=== PATIENT | male | born 1955 | race Caucasian/White ===

== ENCOUNTER 2017-07-31 09:07 | Day surgery (SDC) | payer OTHER ==
[2017-07-31] MEDS ORDERED: MIDAZOLAM 1 MG/ML 2 ML INJ ×3 (11:36)
[2017-07-31] MEDS ORDERED: FENTAnyl 50 MCG/ML VIAL (11:36)
== END 2017-07-31 12:22 | disposition home or self-care (01) ==
LOC: GIL 09:07
DX: K21.0 Gastro-esophageal reflux disease with esophagitis (principal); K29.70 Gastritis, unspecified, without bleeding
CPT/HCPCS: 43239; 88305; 88312; 88313

== ENCOUNTER 2018-07-12 04:49 | Inpatient (IN) | payer OTHER ==
[2018-07-12] MEDS: ACETAMINOPHEN 325 MG TAB PO ×2 (05:27→20:02)
[2018-07-12] MEDS ORDERED: ONDANSETRON 4 MG INJ IV (05:30)
[2018-07-12] MEDS ORDERED: NACL 0.9% 3 ML SYG IV (06:00)
[2018-07-12 07:04] LABS: CREATINE KINASE 52 IU/L (23-200)
[2018-07-12 07:16] LABS: CK INDEX 0.5; CK-MB 0.24 ng/ml (0.0-2.4); TROPONIN-I < 0.012 ng/ml (0.000-0.120)
[2018-07-12 07:49] LABS: INR 1.25; PROTIME 15.8 Sec (11.9-14.9); PT RATIO 1.2
[2018-07-12] MEDS: morphine 2 MG INJ IV ×4 (08:18→22:08)
[2018-07-12] MEDS ORDERED: NON-FORMULARY/PATIENT OWN MED (Omeprazole* 40 MG) PO (09:00)
[2018-07-12] MEDS ORDERED: ENOXAPARIN 40 MG/0.4 ML SYG SC (09:00)
[2018-07-12] MEDS: LISINOPRIL 5 MG TAB PO (09:00)
[2018-07-12] MEDS: PANTOPRAZOLE (EC) 40 MG TAB PO (09:13)
[2018-07-12] MEDS ORDERED: LORAZEPAM 2 MG INJ (11:07)
[2018-07-12] MEDS: LORAZEPAM 2 MG INJ IV (11:14)
[2018-07-12 13:57] LABS: ANION GAP 11 (5-13); BLOOD UREA NITROGEN 31 mg/dl (7-20); CALCIUM 9.2 mg/dl (8.4-10.2); CARBON DIOXIDE 26 mmol/L (21-31); CHLORIDE 102 mmol/L (97-110); CREATINE KINASE 49 IU/L (23-200); CREATININE 1.47 mg/dl (0.61-1.24); Estimated GFR 49 mL/min (>60); GLUCOSE 99 mg/dl (70-220); POTASSIUM 4.2 mmol/L (3.5-5.1); SODIUM 139 mmol/L (135-144)
[2018-07-12 14:10] LABS: CK INDEX 0.6; TROPONIN-I < 0.012 ng/ml (0.000-0.120)
[2018-07-12] MEDS: CEFTRIAXONE 1 GM/50 ML (PMX) 50 ML IVPB (15:56)
[2018-07-12] MEDS: AZITHROMYCIN 500MG/NS (PMX) 250 ML IVPB (17:13)
[2018-07-12] MEDS: LORAZEPAM 1 MG TAB PO (21:12)
[2018-07-13] MEDS: morphine 2 MG INJ IV ×6 (02:35→22:04)
[2018-07-13 05:18] LABS: ADD MAN DIFF? NO
[2018-07-13 05:19] LABS: BASOPHIL # 0.1 10^3/ul (0.0-0.1); BASOPHILS % 0.3 % (0.0-2.0); EOSINOPHILS # 0.2 10^3/ul (0.0-0.5); HEMATOCRIT 33.7 % (42.0-52.0); LYMPHOCYTES # 1.2 10^3/ul (0.8-2.9); LYMPHOCYTES % 6.8 % (15.0-51.0); MEAN CORPUSCULAR HEMOGLOBIN 28.6 pg (29.0-33.0); MEAN CORPUSCULAR HGB CONC 32.6 g/dl (32.0-37.0); MEAN CORPUSCULAR VOLUME 87.8 fl (82.0-101.0); MEAN PLATELET VOLUME 10.2 fl (7.4-10.4); MONOCYTE # 1.3 10^3/ul (0.3-0.9); MONOCYTES % 7.6 % (0.0-11.0); NEUTROPHIL # 14.4 10^3/ul (1.6-7.5); NEUTROPHILS % 83.3 % (39.0-77.0); PLATELET COUNT 378 10^3/UL (140-415); RED BLOOD COUNT 3.84 10^6/ul (4.70-6.10); RED CELL DISTRIBUTION WIDTH 14.7 % (11.5-14.5)
[2018-07-13 05:19] LABS: WHITE BLOOD COUNT 17.3 10^3/ul (4.8-10.8)
[2018-07-13 05:42] LABS: HEMOGLOBIN A1C 5.5 % (0-5.9)
[2018-07-13 05:45] LABS: ALANINE AMINOTRANSFERASE 20 IU/L (13-69); ALBUMIN 3.2 g/dl (3.3-4.9); ALBUMIN/GLOBULIN RATIO 0.88; ALKALINE PHOSPHATASE 202 IU/L (42-121); ANION GAP 10 (5-13); ASPARTATE AMINO TRANSFERASE 24 IU/L (15-46); BILIRUBIN,INDIRECT 0.4 mg/dl (0-1.1); BILIRUBIN,TOTAL 0.4 mg/dl (0.2-1.3); BLOOD UREA NITROGEN 25 mg/dl (7-20); CALCIUM 9.3 mg/dl (8.4-10.2); CARBON DIOXIDE 27 mmol/L (21-31); CHLORIDE 103 mmol/L (97-110); CHOLESTEROL 79 mg/dl (100-200); CREATININE 1.13 mg/dl (0.61-1.24); Estimated GFR > 60 mL/min (>60); GLUCOSE 108 mg/dl (70-220); HDL CHOLESTEROL 13 mg/dl (30-78); LDL CHOLESTEROL,CALCULATED 47 mg/dl; MAGNESIUM 1.9 mg/dl (1.7-2.5); POTASSIUM 4.6 mmol/L (3.5-5.1); SODIUM 140 mmol/L (135-144); TOTAL PROTEIN 6.8 g/dl (6.1-8.1); TRIGLYCERIDES 95 mg/dl (0-149)
[2018-07-13] MEDS: LORAZEPAM 1 MG TAB PO ×3 (06:27→19:50)
[2018-07-13] MEDS: PANTOPRAZOLE (EC) 40 MG TAB PO (06:27)
[2018-07-13] MEDS: LEVOTHYROXINE 50 MCG TAB PO ×2 (07:00→09:15)
[2018-07-13] MEDS: LISINOPRIL 20 MG TAB PO (09:14)
[2018-07-13] MEDS: AMLODIPINE 5 MG TAB PO (09:14)
[2018-07-13] MEDS: CEFEPIME 2GM/50 ML (PMX) 50 ML IVPB (11:01)
[2018-07-13] MEDS: SOD CHLORIDE 0.9% 1,000 ML IV ×3 (11:02→22:24)
[2018-07-13] MEDS: AZITHROMYCIN 500MG/NS (PMX) 250 ML IVPB (15:59)
[2018-07-13] MEDS: ACETAMINOPHEN 325 MG TAB PO (19:50)
[2018-07-13] MEDS: DOXYCYCLINE 100 MG in SOD CHLORIDE 0.9% 250 ML IVPB (20:53)
[2018-07-13] MEDS: MEROPENEM 1 GM/50ML(PMX) 50 ML IVPB (22:09)
[2018-07-14] MEDS: ALBUTEROL/IPRATROPIUM (NEB) 3 ML AMP HHN ×3 (00:22→11:51)
[2018-07-14] MEDS: morphine 2 MG INJ IV ×9 (01:06→21:59)
[2018-07-14] MEDS: MEROPENEM 1 GM/50ML(PMX) 50 ML IVPB ×3 (05:03→22:02)
[2018-07-14] MEDS: PANTOPRAZOLE (EC) 40 MG TAB PO (05:03)
[2018-07-14 05:23] LABS: ADD MAN DIFF? NO
[2018-07-14 05:30] LABS: BASOPHILS % 0.2 % (0.0-2.0); EOSINOPHILS # 0.2 10^3/ul (0.0-0.5); HEMATOCRIT 28.7 % (42.0-52.0); HEMOGLOBIN 9.7 g/dl (14.0-18.0); LYMPHOCYTES # 1.1 10^3/ul (0.8-2.9); LYMPHOCYTES % 6.1 % (15.0-51.0); MEAN CORPUSCULAR HEMOGLOBIN 28.7 pg (29.0-33.0); MEAN CORPUSCULAR HGB CONC 33.8 g/dl (32.0-37.0); MEAN CORPUSCULAR VOLUME 84.9 fl (82.0-101.0); MEAN PLATELET VOLUME 9.9 fl (7.4-10.4); MONOCYTE # 1.1 10^3/ul (0.3-0.9); MONOCYTES % 6.6 % (0.0-11.0); NEUTROPHIL # 14.6 10^3/ul (1.6-7.5); NEUTROPHILS % 85.4 % (39.0-77.0); PLATELET COUNT 375 10^3/UL (140-415); RED BLOOD COUNT 3.38 10^6/ul (4.70-6.10); RED CELL DISTRIBUTION WIDTH 14.6 % (11.5-14.5)
[2018-07-14 05:30] LABS: WHITE BLOOD COUNT 17.1 10^3/ul (4.8-10.8)
[2018-07-14 06:39] LABS: HIV 1&2 ANTIBODY NEGATIVE (NEGATIVE)
[2018-07-14] MEDS: SOD CHLORIDE 0.9% 1,000 ML IV ×2 (06:59→17:00)
[2018-07-14] MEDS: LEVOTHYROXINE 50 MCG TAB PO (06:59)
[2018-07-14] MEDS ORDERED: DESFLURANE 15 MIN (07:00)
[2018-07-14] MEDS ORDERED: SUCCINYLCHOLINE CHLORIDE 100 MG/5 ML SYG IV (07:00)
[2018-07-14] MEDS ORDERED: SUGAMMADEX SODIUM 200 MG/2 ML VIAL IV (07:00)
[2018-07-14 07:15] LABS: ANION GAP 8 (5-13); BLOOD UREA NITROGEN 15 mg/dl (7-20); CALCIUM 8.6 mg/dl (8.4-10.2); CARBON DIOXIDE 23 mmol/L (21-31); CHLORIDE 107 mmol/L (97-110); CREATININE 0.86 mg/dl (0.61-1.24); Estimated GFR > 60 mL/min (>60); GLUCOSE 111 mg/dl (70-220); MAGNESIUM 1.7 mg/dl (1.7-2.5); POTASSIUM 4.2 mmol/L (3.5-5.1); SODIUM 138 mmol/L (135-144)
[2018-07-14] MEDS: DOXYCYCLINE 100 MG in SOD CHLORIDE 0.9% 250 ML IVPB ×2 (08:42→22:02)
[2018-07-14] MEDS: LISINOPRIL 20 MG TAB PO (08:43)
[2018-07-14] MEDS: AMLODIPINE 5 MG TAB PO (08:44)
[2018-07-14] MEDS: ONDANSETRON 4 MG INJ IV (12:35)
[2018-07-14] MEDS ORDERED: LORAZEPAM 1 MG TAB PO (13:00)
[2018-07-14] MEDS: KETOROLAC 30 MG INJ IV (13:12)
[2018-07-14] MEDS ORDERED: FENTAnyl 50 MCG/ML VIAL IV (14:00)
[2018-07-14] MEDS ORDERED: ONDANSETRON 4 MG INJ IV (14:00)
[2018-07-14] MEDS ORDERED: LOPERAMIDE 2 MG CAP PO (15:00)
[2018-07-14] MEDS ORDERED: PROMETHAZINE/CODEINE 5ML CUP PO (15:00)
[2018-07-14] MEDS ORDERED: PROPOFOL 20 ML (16:26)
[2018-07-14] MEDS ORDERED: ROCURONIUM 50 MG INJ ×2 (16:26→18:04)
[2018-07-14] MEDS ORDERED: MIDAZOLAM 1 MG/ML 2 ML INJ (16:27)
[2018-07-14] MEDS ORDERED: METOCLOPRAMIDE 10 MG INJ (16:38)
[2018-07-14] MEDS ORDERED: ONDANSETRON 4 MG INJ (16:38)
[2018-07-14] MEDS ORDERED: FENTAnyl 50 MCG/ML VIAL (16:39)
[2018-07-14] MEDS ORDERED: EPHEDrine 25 MG/5 ML SYG (17:23)
[2018-07-14] MEDS ORDERED: HYDROmorphONE 2 MG/ML SYG (17:28)
[2018-07-14] MEDS ORDERED: METOPROLOL 5 MG INJ (17:37)
[2018-07-14 18:28] LABS: AADO2 Arterial 605.1 mmHg (7.0-24.0); Arterial Base Excess -5.5 mmol/L (-3.0-3); Arterial Blood Gas Oxygen Sat 95.5 mmHG (95.0-98.0); Arterial COHb 0.3 % (0.0-3.0); Arterial HCO3 17.4 mmol/L (22.0-26.0); Arterial MetHb 0.2 % (0.0-1.5); Arterial pCO2 25.8 mmhg (35-45); MODE VENT - PC; Site A-Line
[2018-07-14] MEDS ORDERED: KETOROLAC 30 MG INJ (18:51)
[2018-07-14] MEDS ORDERED: DIPHENHYDRAMINE 50 MG INJ IV (19:00)
[2018-07-14] MEDS: ACETAMINOPHEN 1000MG/100ML IV 100 ML IVPB (19:00)
[2018-07-14] MEDS ORDERED: HYDROmorphONE 0.5 MG/0.5 ML SYG IV (19:00)
[2018-07-14 19:25] LABS: ABNORMAL IP MESSAGE 1; HEMATOCRIT 29.2 % (42.0-52.0); MEAN CORPUSCULAR HEMOGLOBIN 29.2 pg (29.0-33.0); MEAN CORPUSCULAR HGB CONC 34.2 g/dl (32.0-37.0); MEAN CORPUSCULAR VOLUME 85.1 fl (82.0-101.0); MEAN PLATELET VOLUME 9.6 fl (7.4-10.4); PLATELET COUNT 529 10^3/UL (140-415); POSITIVE DIFF @See below; RED BLOOD COUNT 3.43 10^6/ul (4.70-6.10); RED CELL DISTRIBUTION WIDTH 14.6 % (11.5-14.5)
[2018-07-14 19:25] LABS: WHITE BLOOD COUNT 26.8 10^3/ul (4.8-10.8)
[2018-07-14 19:27] LABS: ADD MAN DIFF? YES
[2018-07-14] MEDS: BUPIVACAINE 0.5%/EPI (SDV) 10 ML INJ (19:41)
[2018-07-14] MEDS: D5W-0.45 NACL + KCL 20 MEQ 1,000 ML IV (19:59)
[2018-07-14] MEDS: MAGNESIUM SULFATE 2 GM/50 ML 50 ML IVPB (20:04)
[2018-07-14] MEDS: SOD CHLORIDE 0.9% 500 ML IV (20:56)
[2018-07-14] MEDS ORDERED: NORepinephrine 8MG/250 ML (PMX 250 ML IV (21:00)
[2018-07-14] MEDS: FAMOTIDINE 20 MG TAB PO (22:02)
[2018-07-14 23:02] LABS: BAND NEUTROPHILS % (M) 4 % (0-4); BASOPHIL #M 0.2 10^3/ul (0.0-0.0); BASOPHILS % (M) 1 % (0-2); BURR CELLS 1+ (0-0); GIANT THROMBO% (M) 1 % (0-0); LYMPHOCYTES % (M) 4 % (15-51); MONOCYTE #M 0.8 10^3/ul (0.3-0.9); MONOCYTES % (M) 3 % (0-11); OVALOCYTES 1+ (0-0); PLATELET ESTIMATE NORMAL; POIKILOCYTOSIS 1+ (0-0); SEG NEUT #M 23.9 10^3/ul (1.6-7.5); SEGMENTED NEUTROPHILS (M) % 88 % (39-77); SMUDGE%M 1 % (0-0)
[2018-07-15] MEDS: morphine 2 MG INJ IV ×8 (00:42→12:55)
[2018-07-15] MEDS: ACETAMINOPHEN 1000MG/100ML IV 100 ML IVPB ×3 (00:42→12:26)
[2018-07-15] MEDS: ONDANSETRON 4 MG INJ IV ×2 (01:21→08:47)
[2018-07-15] MEDS: LORAZEPAM 1 MG TAB PO ×2 (03:47→22:33)
[2018-07-15] MEDS: KETOROLAC 30 MG INJ IV (04:30)
[2018-07-15 06:01] LABS: ADD MAN DIFF? NO
[2018-07-15 06:05] LABS: WHITE BLOOD COUNT 16.4 10^3/ul (4.8-10.8)
[2018-07-15 06:05] LABS: BASOPHIL # 0.1 10^3/ul (0.0-0.1); BASOPHILS % 0.3 % (0.0-2.0); EOSINOPHILS % 0.2 % (0.0-7.0); HEMATOCRIT 21.7 % (42.0-52.0); HEMOGLOBIN 7.4 g/dl (14.0-18.0); LYMPHOCYTES # 1.2 10^3/ul (0.8-2.9); LYMPHOCYTES % 7.3 % (15.0-51.0); MEAN CORPUSCULAR HEMOGLOBIN 29.4 pg (29.0-33.0); MEAN CORPUSCULAR HGB CONC 34.1 g/dl (32.0-37.0); MEAN CORPUSCULAR VOLUME 86.1 fl (82.0-101.0); MEAN PLATELET VOLUME 9.9 fl (7.4-10.4); MONOCYTES % 6.3 % (0.0-11.0); NEUTROPHIL # 13.8 10^3/ul (1.6-7.5); NEUTROPHILS % 84.5 % (39.0-77.0); PLATELET COUNT 371 10^3/UL (140-415); RED BLOOD COUNT 2.52 10^6/ul (4.70-6.10); RED CELL DISTRIBUTION WIDTH 14.6 % (11.5-14.5)
[2018-07-15] MEDS: D5W-0.45 NACL + KCL 20 MEQ 1,000 ML IV (06:29)
[2018-07-15] MEDS: MEROPENEM 1 GM/50ML(PMX) 50 ML IVPB ×3 (06:29→22:37)
[2018-07-15] MEDS: PANTOPRAZOLE (EC) 40 MG TAB PO (06:30)
[2018-07-15] MEDS: LEVOTHYROXINE 50 MCG TAB PO (06:30)
[2018-07-15 06:32] LABS: ANION GAP 6 (5-13); BLOOD UREA NITROGEN 18 mg/dl (7-20); CALCIUM 8.2 mg/dl (8.4-10.2); CARBON DIOXIDE 20 mmol/L (21-31); CHLORIDE 110 mmol/L (97-110); CREATININE 1.03 mg/dl (0.61-1.24); Estimated GFR > 60 mL/min (>60); GLUCOSE 138 mg/dl (70-220); POTASSIUM 4.9 mmol/L (3.5-5.1); SODIUM 136 mmol/L (135-144)
[2018-07-15] MEDS: ENOXAPARIN 40 MG/0.4 ML SYG SC (06:33)
[2018-07-15 06:46] LABS: MAGNESIUM 2.1 mg/dl (1.7-2.5)
[2018-07-15] MEDS: HYDROmorphONE 0.5 MG/0.5 ML SYG IV ×2 (06:56→13:47)
[2018-07-15] MEDS: AMLODIPINE 5 MG TAB PO (08:56)
[2018-07-15] MEDS: FAMOTIDINE 20 MG TAB PO ×2 (08:56→21:16)
[2018-07-15] MEDS: HYDROCODONE/APAP (10/325) TAB PO ×4 (08:56→22:33)
[2018-07-15] MEDS: LISINOPRIL 20 MG TAB PO (08:56)
[2018-07-15] MEDS: DOXYCYCLINE 100 MG in SOD CHLORIDE 0.9% 250 ML IVPB ×2 (09:50→21:16)
[2018-07-15] MEDS: DEXTROSE 5%-0.45% NACL 1,000 ML IV ×2 (10:57→22:43)
[2018-07-15 14:03] LABS: HEMATOCRIT 22.7 % (42.0-52.0); HEMOGLOBIN 7.5 g/dl (14.0-18.0)
[2018-07-15] MEDS: HYDROmorphONE 0.2 MG/ML PCA IV (15:24)
[2018-07-16] MEDS: HYDROCODONE/APAP (10/325) TAB PO ×4 (04:17→20:18)
[2018-07-16 05:18] LABS: ADD MAN DIFF? NO
[2018-07-16 05:26] LABS: WHITE BLOOD COUNT 13.9 10^3/ul (4.8-10.8)
[2018-07-16 05:26] LABS: BASOPHILS % 0.3 % (0.0-2.0); EOSINOPHILS # 0.5 10^3/ul (0.0-0.5); EOSINOPHILS % 3.2 % (0.0-7.0); HEMOGLOBIN 7.2 g/dl (14.0-18.0); LYMPHOCYTES # 1.4 10^3/ul (0.8-2.9); LYMPHOCYTES % 10.4 % (15.0-51.0); MEAN CORPUSCULAR HEMOGLOBIN 28.8 pg (29.0-33.0); MEAN CORPUSCULAR HGB CONC 32.7 g/dl (32.0-37.0); MONOCYTE # 0.9 10^3/ul (0.3-0.9); MONOCYTES % 6.6 % (0.0-11.0); NEUTROPHIL # 10.8 10^3/ul (1.6-7.5); NEUTROPHILS % 78.1 % (39.0-77.0); PLATELET COUNT 377 10^3/UL (140-415); RED CELL DISTRIBUTION WIDTH 14.6 % (11.5-14.5)
[2018-07-16] MEDS: MEROPENEM 1 GM/50ML(PMX) 50 ML IVPB ×3 (05:39→22:48)
[2018-07-16 05:42] LABS: ANION GAP 5 (5-13); BLOOD UREA NITROGEN 15 mg/dl (7-20); CALCIUM 8.1 mg/dl (8.4-10.2); CARBON DIOXIDE 22 mmol/L (21-31); CHLORIDE 106 mmol/L (97-110); CREATININE 0.73 mg/dl (0.61-1.24); Estimated GFR > 60 mL/min (>60); GLUCOSE 112 mg/dl (70-220); POTASSIUM 4.7 mmol/L (3.5-5.1); SODIUM 133 mmol/L (135-144)
[2018-07-16 05:48] LABS: IRON < 10 ug/dl (35-150)
[2018-07-16 05:52] LABS: MAGNESIUM 1.9 mg/dl (1.7-2.5)
[2018-07-16 06:03] LABS: TOTAL IRON BINDING CAPACITY 190 ug/dl (241-421)
[2018-07-16] MEDS: DEXTROSE 5%-0.45% NACL 1,000 ML IV ×2 (06:37→16:01)
[2018-07-16] MEDS: LEVOTHYROXINE 50 MCG TAB PO (06:45)
[2018-07-16] MEDS: ENOXAPARIN 40 MG/0.4 ML SYG SC (07:00)
[2018-07-16] MEDS: DOXYCYCLINE 100 MG in SOD CHLORIDE 0.9% 250 ML IVPB (08:13)
[2018-07-16] MEDS: FAMOTIDINE 20 MG TAB PO ×2 (08:14→20:18)
[2018-07-16] MEDS: LISINOPRIL 20 MG TAB PO (08:14)
[2018-07-16] MEDS: AMLODIPINE 5 MG TAB PO (08:14)
[2018-07-16] MEDS: HYDROmorphONE 0.2 MG/ML PCA IV ×2 (08:22→22:00)
[2018-07-16] MEDS: ONDANSETRON 4 MG INJ IV ×2 (14:21→22:49)
[2018-07-16] MEDS: LORAZEPAM 2 MG INJ IV (15:52)
[2018-07-16] MEDS ORDERED: BISACODYL 10 MG SUPP PR (18:00)
[2018-07-16] MEDS: METOCLOPRAMIDE 10 MG INJ IV (19:09)
[2018-07-16] MEDS: LORAZEPAM 1 MG TAB PO (19:41)
[2018-07-17] MEDS: DEXTROSE 5%-0.45% NACL 1,000 ML IV ×3 (00:44→22:26)
[2018-07-17] MEDS: traZODone 50 MG TAB PO (00:50)
[2018-07-17] MEDS: HYDROCODONE/APAP (10/325) TAB PO ×3 (02:20→19:04)
[2018-07-17] MEDS: METOCLOPRAMIDE 10 MG INJ IV ×3 (02:20→16:13)
[2018-07-17] MEDS: HYDROmorphONE 0.2 MG/ML PCA IV ×3 (06:01→19:40)
[2018-07-17] MEDS: LEVOTHYROXINE 50 MCG TAB PO (06:17)
[2018-07-17] MEDS: MEROPENEM 1 GM/50ML(PMX) 50 ML IVPB (06:17)
[2018-07-17] MEDS: ONDANSETRON 4 MG INJ IV ×3 (06:21→19:03)
[2018-07-17] MEDS: ENOXAPARIN 40 MG/0.4 ML SYG SC (06:28)
[2018-07-17] MEDS: FAMOTIDINE 20 MG TAB PO ×2 (08:39→20:16)
[2018-07-17] MEDS: AMLODIPINE 5 MG TAB PO (08:39)
[2018-07-17] MEDS: LISINOPRIL 20 MG TAB PO (08:40)
[2018-07-17] MEDS: CEFTRIAXONE 1 GM/50 ML (PMX) 50 ML IVPB (12:52)
[2018-07-17] MEDS: LORAZEPAM 1 MG TAB PO (22:26)
[2018-07-18] MEDS: HYDROCODONE/APAP (10/325) TAB PO ×4 (01:01→23:02)
[2018-07-18] MEDS: ONDANSETRON 4 MG INJ IV ×2 (04:07→12:50)
[2018-07-18 06:02] LABS: ADD MAN DIFF? NO
[2018-07-18 06:12] LABS: WHITE BLOOD COUNT 10.6 10^3/ul (4.8-10.8)
[2018-07-18 06:12] LABS: BASOPHILS % 0.3 % (0.0-2.0); EOSINOPHILS # 0.4 10^3/ul (0.0-0.5); EOSINOPHILS % 3.5 % (0.0-7.0); HEMATOCRIT 22.4 % (42.0-52.0); HEMOGLOBIN 7.3 g/dl (14.0-18.0); LYMPHOCYTES # 1.4 10^3/ul (0.8-2.9); LYMPHOCYTES % 13.1 % (15.0-51.0); MEAN CORPUSCULAR HEMOGLOBIN 28.3 pg (29.0-33.0); MEAN CORPUSCULAR HGB CONC 32.6 g/dl (32.0-37.0); MEAN CORPUSCULAR VOLUME 86.8 fl (82.0-101.0); MONOCYTE # 0.9 10^3/ul (0.3-0.9); MONOCYTES % 8.2 % (0.0-11.0); NEUTROPHIL # 7.8 10^3/ul (1.6-7.5); NEUTROPHILS % 73.7 % (39.0-77.0); PLATELET COUNT 581 10^3/UL (140-415); RED BLOOD COUNT 2.58 10^6/ul (4.70-6.10); RED CELL DISTRIBUTION WIDTH 14.2 % (11.5-14.5)
[2018-07-18] MEDS: LEVOTHYROXINE 50 MCG TAB PO (06:27)
[2018-07-18] MEDS: ENOXAPARIN 40 MG/0.4 ML SYG SC (06:28)
[2018-07-18] MEDS: METOCLOPRAMIDE 10 MG INJ IV ×3 (06:31→23:02)
[2018-07-18] MEDS: HYDROmorphONE 0.2 MG/ML PCA IV ×2 (07:52→19:58)
[2018-07-18] MEDS: DEXTROSE 5%-0.45% NACL 1,000 ML IV ×3 (08:54→19:46)
[2018-07-18] MEDS: AMLODIPINE 5 MG TAB PO (08:55)
[2018-07-18] MEDS: LISINOPRIL 20 MG TAB PO (08:55)
[2018-07-18] MEDS: FAMOTIDINE 20 MG TAB PO ×2 (08:55→20:00)
[2018-07-18] MEDS: CEFTRIAXONE 1 GM/50 ML (PMX) 50 ML IVPB (12:45)
[2018-07-18] MEDS: LORAZEPAM 1 MG TAB PO (20:00)
[2018-07-19] MEDS: ONDANSETRON 4 MG INJ IV ×4 (01:27→23:41)
[2018-07-19] MEDS: HYDROCODONE/APAP (10/325) TAB PO ×4 (04:29→23:38)
[2018-07-19] MEDS: METOCLOPRAMIDE 10 MG INJ IV ×3 (04:32→20:10)
[2018-07-19] MEDS: HYDROmorphONE 0.2 MG/ML PCA IV ×3 (04:47→20:13)
[2018-07-19] MEDS: DEXTROSE 5%-0.45% NACL 1,000 ML IV ×2 (04:47→15:15)
[2018-07-19] MEDS: LEVOTHYROXINE 50 MCG TAB PO (06:49)
[2018-07-19] MEDS: ENOXAPARIN 40 MG/0.4 ML SYG SC (06:50)
[2018-07-19] MEDS: FAMOTIDINE 20 MG TAB PO ×2 (08:01→20:06)
[2018-07-19] MEDS: LISINOPRIL 20 MG TAB PO (08:48)
[2018-07-19] MEDS: AMLODIPINE 5 MG TAB PO (08:48)
[2018-07-19] MEDS: CEFTRIAXONE 1 GM/50 ML (PMX) 50 ML IVPB (11:55)
[2018-07-19] MEDS: LIDOCAINE 1% (MPF) 5 ML VIAL SC (12:30)
[2018-07-19] MEDS: LORAZEPAM 1 MG TAB PO (20:06)
[2018-07-20] MEDS: ACETAMINOPHEN 325 MG TAB PO (01:15)
[2018-07-20] MEDS: DEXTROSE 5%-0.45% NACL 1,000 ML IV (03:38)
[2018-07-20] MEDS: HYDROCODONE/APAP (10/325) TAB PO ×3 (05:22→18:22)
[2018-07-20] MEDS: ONDANSETRON 4 MG INJ IV ×2 (05:22→12:14)
[2018-07-20] MEDS: HYDROmorphONE 0.2 MG/ML PCA IV (06:01)
[2018-07-20] MEDS: LEVOTHYROXINE 50 MCG TAB PO (06:32)
[2018-07-20] MEDS: ENOXAPARIN 40 MG/0.4 ML SYG SC (06:32)
[2018-07-20] MEDS: AMLODIPINE 5 MG TAB PO (08:38)
[2018-07-20] MEDS: FAMOTIDINE 20 MG TAB PO ×2 (08:39→21:23)
[2018-07-20] MEDS: LISINOPRIL 20 MG TAB PO (08:39)
[2018-07-20] MEDS: CEFTRIAXONE 1 GM/50 ML (PMX) 50 ML IVPB (12:15)
[2018-07-20] MEDS: ALPRAZOLAM 1 MG TAB PO ×2 (14:06→22:13)
[2018-07-20] MEDS: FERROUS SULFATE (EC) 325 MG TAB PO (14:07)
[2018-07-20] MEDS: KETOROLAC 15 MG INJ IV (15:47)
[2018-07-21] MEDS: HYDROCODONE/APAP (10/325) TAB PO ×3 (01:03→17:11)
[2018-07-21] MEDS: KETOROLAC 15 MG INJ IV ×3 (03:29→15:59)
[2018-07-21] MEDS: ALPRAZOLAM 1 MG TAB PO ×2 (05:47→13:26)
[2018-07-21] MEDS: LEVOTHYROXINE 50 MCG TAB PO (06:26)
[2018-07-21] MEDS: ENOXAPARIN 40 MG/0.4 ML SYG SC (06:29)
[2018-07-21] MEDS: AMLODIPINE 5 MG TAB PO (08:32)
[2018-07-21] MEDS: LISINOPRIL 20 MG TAB PO (08:32)
[2018-07-21] MEDS: FAMOTIDINE 20 MG TAB PO (08:32)
[2018-07-21] MEDS: CEFTRIAXONE 1 GM/50 ML (PMX) 50 ML IVPB (12:18)
[2018-07-21] MEDS: METOCLOPRAMIDE 10 MG INJ IV (12:28)
== END 2018-07-21 19:42 | disposition home or self-care (01) | DRG 853 ==
LOC: ICU 07-14 18:15 → E/R 04:49 → PP2 07-16 13:41 → 2NE 05:13
PROC: 0BNF4ZZ Release Right Lower Lung Lobe, Percutaneous Endoscopic Approach (ICD-10-PCS; principal; 2018-07-14 16:00)
PROC: 0BNC4ZZ Release Right Upper Lung Lobe, Percutaneous Endoscopic Approach (ICD-10-PCS; 2018-07-14 16:00)
PROC: 0BND4ZZ Release Right Middle Lung Lobe, Percutaneous Endoscopic Approach (ICD-10-PCS; 2018-07-14 16:00)
PROC: 0BNT4ZZ Release Diaphragm, Percutaneous Endoscopic Approach (ICD-10-PCS; 2018-07-14 16:00)
PROC: 01583ZZ Destruction of Thoracic Nerve, Percutaneous Approach (ICD-10-PCS; 2018-07-14 16:00)
PROC: 0BJ08ZZ Inspection of Tracheobronchial Tree, Via Natural or Artificial Opening Endoscopic (ICD-10-PCS; 2018-07-14 16:00)
PROC: 0W9930Z Drainage of Right Pleural Cavity with Drainage Device, Percutaneous Approach (ICD-10-PCS; 2018-07-14 16:00)
PROC: 02HV33Z Insertion of Infusion Device into Superior Vena Cava, Percutaneous Approach (ICD-10-PCS; 2018-07-14 16:55)
DX: A41.9 Sepsis, unspecified organism (principal); J86.9 Pyothorax without fistula; J15.4 Pneumonia due to other streptococci; J90 Pleural effusion, not elsewhere classified; N17.9 Acute kidney failure, unspecified; R65.20 Severe sepsis without septic shock; D50.9 Iron deficiency anemia, unspecified; G89.29 Other chronic pain; I10 Essential (primary) hypertension; K21.9 Gastro-esophageal reflux disease without esophagitis; M54.9 Dorsalgia, unspecified; R06.03 Acute respiratory distress; Z87.891 Personal history of nicotine dependence
CPT/HCPCS: 36569; 36600; 71045; 71046; 71250; 76604; 76937; 80048; 80053; 80061; 82550; 82553; 82728; 82803; 82962; 83036; 83540; 83735; 84443; 84484; 85014; 85018; 85025; 85610; 86635; 86703; 86850; 86900; 86901; 86920; 87040-91; 87070; 87077; 87081; 87086; 87102; 88305; 93306; 94640; 97116; 97162; 97530; 99285-25

== ENCOUNTER 2018-10-08 07:25 | Day surgery (SDC) | payer OTHER ==
[2018-10-08] MEDS ORDERED: MIDAZOLAM 1 MG/ML 2 ML INJ ×2 (09:24→09:25)
[2018-10-08] MEDS ORDERED: FENTAnyl 50 MCG/ML VIAL ×3 (09:25→09:34)
== END 2018-10-08 11:46 | disposition home or self-care (01) ==
LOC: GIL 07:25
DX: Z86.010 Personal history of colon polyps (principal); K64.4 Residual hemorrhoidal skin tags; K57.30 Diverticulosis of large intestine without perforation or abscess without bleeding; I10 Essential (primary) hypertension; E03.9 Hypothyroidism, unspecified
CPT/HCPCS: 45378